=== PATIENT | female | born 1930 | race Asian ===

== ENCOUNTER 2019-11-13 20:18 | Emergency (ER) | payer MEDICARE ==
[~2019-11-13] VITALS: Ht 157.5 cm; Wt 56.7 kg
[2019-11-13 20:20] VITALS: BP_SYST 178
--- NOTE | 2019-11-13 20:20 | NUR ---
Patient triaged and placed in waiting room. VSS and patient appears in no acute distress at this time. Accompanied by FAM MEMBER, awaiting available bed, and MD notified of need for MSE.
--- NOTE | 2019-11-13 23:45 | NUR ---
Patient to ER CHAIR to gown for evaluation. Side rails up. Report given to REG[facility].
--- NOTE | 2019-11-13 23:50 | NUR ---
Pt brought in by family member. Pt awake, alert, oriented x4. Pt states that she had trip and fall today, and ended up with bruise and "goose egg" on her forehead. Pt presents with hematoma to forehead after witnessed mechanical fall. Pt denies KO, Syncope, Chest pain, nausea, vomiting, diarrhea, shortness of breath or any other medical complaint at this time. Pt Vss
--- NOTE | 2019-11-14 00:44 | NUR ---
ER at bedside examining patient.
--- NOTE | 2019-11-14 02:22 | NUR ---
Patient given written and verbal discharge instructions and verbalizes understanding. ER MD discussed with patient the results and treatment provided. Patient in stable condition. ID arm band removed. no Rx of given. Patient educated on pain management and to follow up with PMD. Pain Scale 0/10. Opportunity for questions provided and answered. Medication side effect fact sheet provided.
[2019-11-14 02:23] VITALS: BP_SYST 169
== END 2019-11-14 02:23 | disposition home or self-care (01) ==
LOC: SED 20:18
DX: S09.8XXA Other specified injuries of head, initial encounter (principal); Z88.6 Allergy status to analgesic agent; W18.39XA Other fall on same level, initial encounter; Y93.89 Activity, other specified; Y92.511 Restaurant or cafe as the place of occurrence of the external cause; Y99.8 Other external cause status
CPT/HCPCS: 70450-TC; 99284